=== PATIENT | female | born 1940 | race Caucasian/White ===

== ENCOUNTER → 2016-05-27 | Outpatient (CLI) | payer MEDICARE ==
[~2016-05-27] MED LIST: CIPR500T89 PO; LEVO75TA4 PO; LISI10TA4 PO; MECL-68 PO; METO25TAB PO; NORV5TAB PO; VITA-112 PO
--- NOTE | 2016-05-27 14:49 | REPMRS ---
Patient History The patient states she has not had a clinical breast exam in over a year. No known family history of cancer. Digital Woman Screen Mammo: May 27, 2016 - Exam #: [id number] Bilateral CC and MLO view(s) were taken. Technologist: Marily Mckenzie, Technologist Prior study comparison: May 13, 2009, bilateral screening mammogram, performed at [facility]. FINDINGS: There are scattered fibroglandular densities. There has been no change in the appearance of the mammogram from the prior studies. There is a mild amount of scattered fibroglandular density which is fairly symmetric. There is no interval development of dominant mass, architectural distortion, or clustered microcalcification suggestive of malignancy. ASSESSMENT: BI-RADS/ACR category 1 mammogram. Negative. Recommendation Routine screening mammogram in 1 year (for women over age 40). This mammogram was interpreted with the aid of an FDA-approved computer-aided dectection system. Electronically Signed By: Autsyn Hartley MD 05/27/16 0593
--- NOTE | 2016-05-31 09:24 | DEXA ---
AP SPINE L1 - L4 1.520 2.6 4.0 LT FEMUR TOTAL 1.127 0.9 2.4 RT FEMUR TOTAL 1.072 0.5 1.9 TOTAL BODY TOTAL OTHER DUAL FEMUR FRAX* ASSESSMENT Risk factors: None. 10 year probability of fracture Major osteoporotic fracture 8.3 % Hip fracture 0.9 % COMMENTS: Normal bone densitometry of the spine and hips. The density of the spine has increased 7.3% since 04/19/2005. The density of the left hip has decreased 9.2% since 04/19/2005. The increased density of the spine does represent a significant change. The decreased density of the left hip does represent a significant change. FOLLOW-UP: Recommendation for the next bone density exam: 5 years. WILBER
== END ==
LOC: M WHC 13:23
PROVIDERS: ATTEND Nurse Practitioner Adult Health
DX: Z13.820 Encounter for screening for osteoporosis (principal); Z12.31 Encounter for screening mammogram for malignant neoplasm of breast; M85.88 Other specified disorders of bone density and structure, other site
CPT/HCPCS: 77080; G0202

== ENCOUNTER 2016-07-26 08:43 | Emergency (ER) | payer MEDICARE ==
[~2016-07-26] VITALS: Ht 154.9 cm; Wt 76.2 kg
[2016-07-26] MEDS ORDERED: PRAV10TA PO (09:27)
[2016-07-26] MEDS ORDERED: VALS1TAB47 PO (09:27)
--- NOTE | 2016-07-26 11:18 | REP ---
RIGHT KNEE SERIES: Five views of the right knee performed. There is no acute fracture or dislocation. There is mild medial joint space narrowing and spurring. I do not see significant joint effusion. IMPRESSION: Mild degenerative changes. No fracture or dislocation. Signed by Sabino Dent MD 07/26/2016 04:22 P
[2016-07-26 11:25] VITALS: BP 137/77
[2016-07-26] MEDS ORDERED: ROBA500T PO (11:25)
[2016-07-26] MEDS ORDERED: ULTR50TA PO (11:25)
== END 2016-07-26 11:33 | disposition home or self-care (01) ==
LOC: M ED 10:13
DX: M25.561 Pain in right knee (principal); I25.10 Atherosclerotic heart disease of native coronary artery without angina pectoris; I10 Essential (primary) hypertension; Z88.5 Allergy status to narcotic agent; Z79.899 Other long term (current) drug therapy; R42 Dizziness and giddiness; Z86.73 Personal history of transient ischemic attack (TIA), and cerebral infarction without residual deficits; E78.00 Pure hypercholesterolemia, unspecified; E03.9 Hypothyroidism, unspecified

== ENCOUNTER 2019-10-21 08:14 | Emergency (ER) | payer MEDICARE ==
[~2019-10-21] VITALS: Ht 152.4 cm; Wt 80.1 kg
[~2019-10-21 08:14] MED LIST changes: +ALLE10TA12 PO; +ASPI81TA85 PO; +CIPR-249 PO; -CIPR500T89 PO; -MECL-68 PO; +MECL1TAB31 PO; +MEDR4PAK PO; +METO1TAB32 PO; +METO1TAB63 PO; -METO25TAB PO; +PRAV10TA4 PO; +ROBA500T PO; +ULTR50TA8 PO; +VALS1TAB67 PO
[2019-10-21] MEDS ORDERED: LEVO50TA5 (08:24)
[2019-10-21] MEDS ORDERED: PRAV20TA2 (08:24)
[2019-10-21] MEDS ORDERED: OLME40TA (08:24)
[2019-10-21] MEDS ORDERED: ACETAMINOPHEN 500 MG TAB PO ONE (08:45)
[2019-10-21 09:23] LABS: BASO # 0.1 10^3/uL (0.0-0.2); EOS # 0.4 10^3/uL (0.0-0.5); EOS % 4.3 % (0.0-3.0); HEMATOCRIT 43.3 % (36.0-47.0); HEMOGLOBIN 14.2 g/dl (12.0-15.5); LYMPH # 3.4 10^3/uL (1.5-5.0); LYMPH % 41.7 % (24.0-44.0); MEAN CORPUSCULAR HEMOGLOBIN 29.4 pg (27.0-33.0); MEAN CORPUSCULAR HGB CONC 32.8 g/dl (32.0-36.5); MEAN CORPUSCULAR VOLUME 89.6 fl (80.0-96.0); MONO # 0.7 10^3/uL (0.0-0.8); MONO % 8.4 % (0.0-5.0); NEUTROPHILS # 3.7 10^3/uL (1.5-8.5); NEUTROPHILS % 44.2 % (36.0-66.0); PLATELET COUNT, AUTOMATED 240 10^3/uL (150-450); RED BLOOD COUNT 4.83 10^6/uL (4.00-5.40); WHITE BLOOD COUNT 8.2 10^3/uL (4.0-10.0)
[2019-10-21] MEDS ORDERED: ISOVUE-370 76% 100ML VIAL As Ordered ONE (09:42)
[2019-10-21 09:55] LABS: APPEARANCE, URINE CLEAR (CLEAR); BACTERIA, URINE AUTO NEGATIVE (NEGATIVE); BILIRUBIN, URINE AUTO NEGATIVE (NEGATIVE); BLOOD, URINE BLOOD 1+ (NEGATIVE); COLOR, URINE STRAW (YELLOW); GLUCOSE, URINE (UA) AUTO NEGATIVE (NEGATIVE); KETONE, URINE AUTO NEGATIVE (NEGATIVE); LEUKOCYTE ESTERASE, URINE AUTO 1+ (NEGATIVE); MUCUS, URINE SMALL (NEGATIVE); NITRITE, URINE AUTO NEGATIVE (NEGATIVE); PROTEIN, URINE AUTO NEGATIVE (NEGATIVE); RBC, URINE AUTO 2 /HPF (0-3); SPECIFIC GRAVITY URINE AUTO 1.009 (1.002-1.035); SQUAMOUS EPITHELIAL CELL UR AU 0 /HPF (0-6); UROBILINOGEN, URINE AUTO 0.2 mg/dL (0.0-2.0); WBC, URINE AUTO 3 /HPF (0-3)
--- NOTE | 2019-10-21 10:31 | REP ---
CT CERVICAL SPINE: INDICATION: Cervical spine trauma. COMPARISON: None. FINDINGS: There is no acute fracture, subluxation or dislocation. No hemorrhage or additional acute posttraumatic sequelae are present within the spinal canal. Multilevel spondylosis is present most pronounced at C5-6 and C6-7 without severe spinal canal narrowing detected. IMPRESSION: No acute posttraumatic sequelae of the cervical spine. Unreviewed
--- NOTE | 2019-10-21 10:40 | REP ---
CT BRAIN: INDICATION: Head trauma. COMPARISON: 11/21/2014 FINDINGS: There is no acute intracranial hemorrhage, acute cortical infarction, mass effect, hydrocephalus or acute calvarial fracture. Age-related volume loss and mild sequelae of chronic small vessel disease are present. IMPRESSION: No acute intracranial process. Unreviewed
[2019-10-21] MEDS ORDERED: LIDOCAINE 5% (LIDODERM) PATCH TD ONE (11:15)
[2019-10-21 11:26] VITALS: BP 160/80
[2019-10-21] MEDS ORDERED: LIDO5DIS41 TOP (11:38)
--- NOTE | 2019-10-21 11:40 | REP ---
REASON: Pain after trauma. PRIORS: None. CONTRAST: 100 mL Isovue 370. There is no mediastinal or hilar adenopathy. There are no pleural or pericardial effusions. The imaged osseous structures are within normal limits. Evaluation of the lung acosta shows a 5 mm sized nodule in the posterior segment of the right upper lobe. IMPRESSION: 5 mm sized right upper lobe nodule. According to the revised Fleischner Society criteria, this represents a category 3 lesion for which a 6-month followup examination is recommended. Electronically Signed by Oli Castillo DO 10/21/2019 01:23 P
--- NOTE | 2019-10-21 11:43 | REP ---
REASON: Trauma. PRIORS: None. CONTRAST: 100 mL Isovue 370. The liver, gallbladder, spleen, pancreas, adrenal glands, and kidneys are within normal limits. The abdominal aorta and para-aortic regions are within normal limits. The intra-abdominal and intrapelvic bowel loops and their mesenteries are within normal limits. No free fluid or free air is seen in the abdomen or pelvis. Bone window technique throughout the examination shows chronic changes involving the hips, spine, sacroiliac joints. IMPRESSION: No evidence of acute disease. Electronically Signed by Oli Castillo DO 10/21/2019 01:23 P
[2019-10-21] MEDS ORDERED: **NOTE PATIENT COMMENT** MISC XX ONE (23:30)
--- NOTE | 2019-10-22 13:15 | ED PDOC ---
Post-Departure Follow-Up dr ramires faxed formal report of ct chest for fu Magdalene Benz MD Oct 22, 2019 13:15
== END 2019-10-21 11:41 | disposition home or self-care (01) ==
LOC: M ED 08:14
DX: S09.90XA Unspecified injury of head, initial encounter (principal); S20.229A Contusion of unspecified back wall of thorax, initial encounter; S20.219A Contusion of unspecified front wall of thorax, initial encounter; R91.1 Solitary pulmonary nodule; W11.XXXA Fall on and from ladder, initial encounter; Y92.9 Unspecified place or not applicable; Y93.9 Activity, unspecified; Y99.9 Unspecified external cause status; J30.1 Allergic rhinitis due to pollen; I10 Essential (primary) hypertension; E78.5 Hyperlipidemia, unspecified; R73.03 Prediabetes; E03.9 Hypothyroidism, unspecified; Z86.73 Personal history of transient ischemic attack (TIA), and cerebral infarction without residual deficits; Z79.82 Long term (current) use of aspirin; Z79.899 Other long term (current) drug therapy; Z88.5 Allergy status to narcotic agent
CPT/HCPCS: 70450; 71260; 72125; 74177; 80047; 81001; 85025; 99284; Q9967

== ENCOUNTER → 2020-05-27 | Outpatient (REF) | payer BC, MEDICARE ==
[~2020-05-27] MED LIST changes: -ASPI81TA85 PO; +ASPI81TA86 PO; +LEVO50TA5; +LIDO5DIS41 TOP; +LISI10TA22 PO; -LISI10TA4 PO; +OLME40TA; +PRAV20TA2
[2020-05-27 10:30] LABS: CHOLESTEROL RISK RATIO 3.619 (<5)
[2020-05-27 10:49] LABS: HEMOGLOBIN A1c 6.8 %
== END ==
LOC: M SFHCPLAZ 08:14
PROVIDERS: ATTEND Physician Assistant
DX: E11.9 Type 2 diabetes mellitus without complications (principal); E78.2 Mixed hyperlipidemia

== ENCOUNTER → 2020-11-02 | Outpatient (CLI) | payer MEDICARE ==
--- NOTE | 2020-11-02 11:35 | REP ---
INDICATION: SOLITARY PULMONARY NODULE. COMPARISON: Comparison chest CT study October 21, 2019.. TECHNIQUE: Helical scanning is acquired. 3 mm axial images are generated. Coronal and sagittal MPR and coronal MIP images are generated. FINDINGS: Preliminary digital car chaser radiograph is unremarkable. There is no evidence of pleural or pericardial effusion. No hilar or mediastinal mass or adenopathy is observed. There is some vascular calcification including the left coronary artery distribution. Normal adrenal glands are observed. The visualized upper abdominal structures are unremarkable. No bony destructive lesion is seen. There are multiple tiny subcentimeter pulmonary nodules bilaterally all of which are unchanged from the prior study done 1 year ago on October 21, 2019. The largest of these is a 5 mm nodule in the right upper lobe seen on today's study page 31/ in series 35131. No infiltrate or mass lesion is seen. No endobronchial lesion is seen. IMPRESSION: Lung RADS category 2 findings. If the patient is considered at high risk for pulmonary malignancy, repeat screening exam would be indicated in 1 year. <Electronically signed by Austyn Hartley > 11/02/20 [id number]
== END ==
LOC: M PLAIMG 09:32
PROVIDERS: ATTEND Internal Medicine Pulmonary Disease
DX: R91.8 Other nonspecific abnormal finding of lung field (principal)

== ENCOUNTER → 2020-11-12 | Outpatient (CLI) | payer MEDICARE ==
[2020-11-12 12:06] LABS: HEMOGLOBIN A1c 6.5 %
[2020-11-12 12:20] LABS: ALBUMIN 3.6 GM/DL (3.2-5.2); ALT/SGPT 30 U/L (12-78); BILIRUBIN,TOTAL 0.6 MG/DL (0.2-1.0); BLOOD UREA NITROGEN 16 MG/DL (7-18); CALCIUM LEVEL 8.6 MG/DL (8.8-10.2); CARBON DIOXIDE LEVEL 29 MEQ/L (21-32); CHLORIDE LEVEL 106 MEQ/L (98-107); CREATININE FOR GFR 0.87 MG/DL (0.55-1.30); FREE T4 1.06 NG/DL (0.76-1.46); GLOMERULAR FILTRATION RATE > 60.0 (>39); GLUCOSE, FASTING 110 MG/DL (70-100); POTASSIUM SERUM 4.6 MEQ/L (3.5-5.1); SODIUM LEVEL 139 MEQ/L (136-145); TOTAL PROTEIN 7.3 GM/DL (6.4-8.2)
== END ==
LOC: M PLALAB 09:04
PROVIDERS: ATTEND Physician Assistant
DX: E03.9 Hypothyroidism, unspecified (principal); E11.9 Type 2 diabetes mellitus without complications

== ENCOUNTER → 2020-12-14 | Outpatient (CLI) | payer MEDICARE ==
--- NOTE | 2020-12-14 11:32 | REPMRS ---
Patient History The patient states she has not had a clinical breast exam in over a year. No known family history of cancer.The patient states she has not had a clinical breast exam in over a year. Patient states no breast complaints today. Patient has signed MRS History Sheet. Digital Woman Screen Mammo: December 14, 2020 - Exam #: [id number] Bilateral CC and MLO view(s) were taken. Technologist: Tessa Hodgson, Technologist Prior study comparison: June 21, 2019, bilateral digital mammo screening bilat, performed at [facility]. May 27, 2016, digital woman screen mammo performed at [facility]. May 13, 2009, bilateral screening mammogram, performed at [facility]. FINDINGS: There are scattered fibroglandular densities. The Volpara volumetric breast density category is: B. There is a moderate amount of residual fibroglandular tissue which is fairly symmetric. There is no interval development of dominant mass, architectural distortion, or grouped microcalcification typical of malignancy. There has been no change in the appearance of the mammogram from the prior studies. 3-D tomosynthesis shows no additional findings. Assessment: BI-RADS/ACR category 1 mammogram. Negative Mammogram. Recommendation Routine screening mammogram of both breasts in 1 year (for women over age 40). This patient's [facility] Lifetime Breast Cancer RIsk is estimated at 2.0 %. This mammogram was interpreted with the aid of an FDA-approved computer-aided dectection system. Electronically Signed By: Austyn Hartley MD 12/14/20 [id number]
== END ==
LOC: M WHC 10:23
PROVIDERS: ATTEND Physician Assistant
DX: Z12.31 Encounter for screening mammogram for malignant neoplasm of breast (principal)

== ENCOUNTER → 2022-05-23 | Outpatient (CLI) | payer MEDICARE | LOC: M PLAIMG 13:23 | PROVIDERS: ATTEND Internal Medicine Critical Care Medicine | DX: R91.8 Other nonspecific abnormal finding of lung field (principal); I25.10 Atherosclerotic heart disease of native coronary artery without angina pectoris; I70.0 Atherosclerosis of aorta ==

== ENCOUNTER → 2022-09-16 | Outpatient (CLI) | payer MEDICARE ==
[~2022-09-16] MED LIST changes: +DRIS50003 PO; +LORA-243 PO; -OLME40TA; +OLME40TA PO; -PRAV20TA2; +PRAV20TA2 PO
[2022-09-16 12:59] LABS: CSF TUBE# CELL CNT TUBE 1
[2022-09-16 13:00] LABS: APPEARANCE, CSF CLEAR (CLEAR); COLOR, CSF COLORLESS (COLORLESS)
[2022-09-16 13:05] LABS: CSF TUBE# TP TUBE 1; TOTAL PROTEIN,CSF 175.6 MG/DL (15-45)
[2022-09-16 13:08] LABS: CSF TUBE# GLU TUBE 1
[2022-09-16 13:30] VITALS: BP 163/73
== END ==
LOC: M IRPRO 09:47
PROVIDERS: ATTEND Psychiatry & Neurology Neurology
DX: R51.9 Headache, unspecified (principal); G03.9 Meningitis, unspecified
CPT/HCPCS: 36415; 62328; 76000; 82784; 82945; 83916; 84157; 87070; 87102; 87205; 87252; 87483; 88108; 88313; 89051; C1729; C1769; C1894

== ENCOUNTER → 2022-10-10 | Outpatient (CLI) | payer MEDICARE ==
[2022-10-19 15:35] LABS: VOLTAGE-GATED POTASSIUM CHANNE 0 pmol/L (0-31)
== END ==
LOC: M PLALAB 14:24
PROVIDERS: ATTEND Psychiatry & Neurology Neurology
DX: R51.9 Headache, unspecified (principal); G03.9 Meningitis, unspecified

== ENCOUNTER → 2022-10-10 | Outpatient (CLI) | payer MEDICARE ==
[2022-10-10 20:25] LABS: HEPATITIS B SURFACE ANTIGEN NEGATIVE (NEGATIVE)
[2022-10-10 20:38] LABS: HIV 1&2 SCREEN NEGATIVE (NEGATIVE)
[2022-10-10 20:47] LABS: HEPATITIS C VIRUS ABY INDEX 0.08 INDEX (<0.8)
== END ==
LOC: M PLALAB 14:20
PROVIDERS: ATTEND Internal Medicine Infectious Disease
DX: G03.0 Nonpyogenic meningitis (principal); Z11.59 Encounter for screening for other viral diseases

== ENCOUNTER → 2022-10-21 | Outpatient (REF) | payer MEDICARE ==
[2022-10-21 17:28] LABS: APPEARANCE, URINE HAZY (CLEAR); BACTERIA, URINE AUTO NEGATIVE (NEGATIVE); BILIRUBIN, URINE AUTO NEGATIVE (NEGATIVE); BLOOD, URINE BLOOD NEGATIVE (NEGATIVE); COLOR, URINE YELLOW (YELLOW); GLUCOSE, URINE (UA) AUTO NEGATIVE (NEGATIVE); KETONE, URINE AUTO NEGATIVE (NEGATIVE); LEUKOCYTE ESTERASE, URINE AUTO 3+ (NEGATIVE); MUCUS, URINE SMALL (NEGATIVE); NITRITE, URINE AUTO NEGATIVE (NEGATIVE); PROTEIN, URINE AUTO NEGATIVE (NEGATIVE); RBC, URINE AUTO 5 /HPF (0-3); SPECIFIC GRAVITY URINE AUTO 1.019 (1.002-1.035); SQUAMOUS EPITHELIAL CELL UR AU 5 /HPF (0-6); UROBILINOGEN, URINE AUTO 0.2 mg/dL (0.0-2.0); WBC, URINE AUTO 15 /HPF (0-3)
[2022-10-21 17:34] LABS: BASO # 0.1 10^3/uL (0.0-0.2); BASO % 0.9 % (0.0-1.0); EOS # 0.3 10^3/uL (0.0-0.5); EOS % 3.3 % (0.0-3.0); HEMOGLOBIN 11.6 g/dl (12.0-15.5); LYMPH # 3.4 10^3/uL (1.5-5.0); LYMPH % 32.5 % (24.0-44.0); MEAN CORPUSCULAR HEMOGLOBIN 28.4 pg (27.0-33.0); MEAN CORPUSCULAR HGB CONC 31.4 g/dl (32.0-36.5); MEAN CORPUSCULAR VOLUME 90.5 fl (80.0-96.0); MONO # 0.9 10^3/uL (0.0-0.8); MONO % 8.7 % (2.0-8.0); NEUTROPHILS # 5.7 10^3/uL (1.5-8.5); NEUTROPHILS % 54.1 % (36.0-66.0); PLATELET COUNT, AUTOMATED 405 10^3/uL (150-450); RED BLOOD COUNT 4.09 10^6/uL (4.00-5.40); WHITE BLOOD COUNT 10.5 10^3/uL (4.0-10.0)
[2022-10-21 17:48] LABS: TOTAL PROTEIN,RANDOM URINE 19.5 MG/DL (0.0-14.0)
[2022-10-21 17:53] LABS: CREATININE,RANDOM URINE 179.5 MG/DL
[2022-10-21 17:58] LABS: C REACTIVE PROTEIN QUANTITATIV 1.9 MG/DL (<1.0); COMPLEMENT C3 143.5 MG/DL (90.0-170.0)
[2022-10-21 17:59] LABS: COMPLEMENT C4 40.4 MG/DL (12-36)
[2022-10-21 18:01] LABS: ERYTHROCYTE SEDIMENTATION RATE 77 mm/hr (0-30)
== END ==
LOC: M SFHCRHEU 14:07
PROVIDERS: ATTEND Internal Medicine
DX: M25.48 Effusion, other site (principal); G03.0 Nonpyogenic meningitis

== ENCOUNTER → 2022-12-22 | Outpatient (CLI) | payer MEDICARE ==
[~2022-12-22] MED LIST changes: +MECL-209 PO; -MECL1TAB31 PO
== END ==
LOC: M PLAIMG 10:08
PROVIDERS: ATTEND Internal Medicine
DX: M25.50 Pain in unspecified joint (principal); M25.48 Effusion, other site

== ENCOUNTER → 2022-12-28 | Outpatient (REF) | payer MEDICARE | LOC: M LAB REF 17:39 | PROVIDERS: ATTEND Surgery | DX: I77.6 Arteritis, unspecified (principal) ==

== ENCOUNTER → 2023-04-03 | Outpatient (CLI) | payer MEDICARE | LOC: M LAB 13:15 | PROVIDERS: ATTEND Psychiatry & Neurology Neurology | DX: R51.9 Headache, unspecified (principal) ==

== ENCOUNTER → 2023-06-21 | Outpatient (CLI) | payer MEDICARE ==
[2023-06-21 11:11] LABS: BASO # 0.1 10^3/uL (0.0-0.2); BASO % 0.4 % (0.0-1.0); EOS # 0.1 10^3/uL (0.0-0.5); EOS % 0.7 % (0.0-3.0); HEMOGLOBIN 13.9 g/dl (12.0-15.5); LYMPH # 2.8 10^3/uL (1.5-5.0); LYMPH % 21.5 % (24.0-44.0); MEAN CORPUSCULAR HEMOGLOBIN 29.6 pg (27.0-33.0); MEAN CORPUSCULAR HGB CONC 32.3 g/dl (32.0-36.5); MEAN CORPUSCULAR VOLUME 91.5 fl (80.0-96.0); MONO % 7.6 % (2.0-8.0); NEUTROPHILS # 9.2 10^3/uL (1.5-8.5); NEUTROPHILS % 69.5 % (36.0-66.0); PLATELET COUNT, AUTOMATED 252 10^3/uL (150-450); WHITE BLOOD COUNT 13.2 10^3/uL (4.0-10.0)
[2023-06-21 11:19] LABS: ERYTHROCYTE SEDIMENTATION RATE 12 mm/hr (0-30)
[2023-06-21 11:34] LABS: C REACTIVE PROTEIN QUANTITATIV < 0.40 MG/DL (<1.0)
[2023-06-21 11:35] LABS: ALBUMIN 3.5 G/DL (3.2-5.2); ALKALINE PHOSPHATASE 62 U/L (46-116); ALT/SGPT 18 U/L (7.0-40); AST/SGOT 13 U/L (<34); BILIRUBIN,TOTAL 0.5 MG/DL (0.3-1.2); BLOOD UREA NITROGEN 25 MG/DL (9-23); CALCIUM LEVEL 8.7 MG/DL (8.3-10.6); CARBON DIOXIDE LEVEL 30 MMOL/L (20-31); CHLORIDE LEVEL 104 MMOL/L (98-107); CREATININE FOR GFR 0.95 MG/DL (0.55-1.30); GLOMERULAR FILTRATION RATE > 60.0 (>32); GLUCOSE, FASTING 131 MG/DL (74-106); POTASSIUM SERUM 4.2 MMOL/L (3.5-5.1); SODIUM LEVEL 139 MMOL/L (136-145); TOTAL PROTEIN 6.3 G/DL (5.7-8.2)
== END ==
LOC: M LAB 10:32
PROVIDERS: ATTEND Internal Medicine Rheumatology
DX: M31.6 Other giant cell arteritis (principal); M54.2 Cervicalgia; M25.50 Pain in unspecified joint; Z79.899 Other long term (current) drug therapy

== ENCOUNTER → 2023-07-31 | Outpatient (CLI) | payer MEDICARE ==
[2023-07-31 10:05] LABS: BASO # 0.1 10^3/uL (0.0-0.2); BASO % 0.6 % (0.0-1.0); EOS # 0.1 10^3/uL (0.0-0.5); HEMATOCRIT 42.6 % (36.0-47.0); HEMOGLOBIN 13.8 g/dl (12.0-15.5); LYMPH # 3.2 10^3/uL (1.5-5.0); LYMPH % 26.6 % (24.0-44.0); MEAN CORPUSCULAR HGB CONC 32.4 g/dl (32.0-36.5); MEAN CORPUSCULAR VOLUME 92.6 fl (80.0-96.0); MONO # 1.2 10^3/uL (0.0-0.8); MONO % 9.5 % (2.0-8.0); NEUTROPHILS # 7.5 10^3/uL (1.5-8.5); PLATELET COUNT, AUTOMATED 243 10^3/uL (150-450); WHITE BLOOD COUNT 12.2 10^3/uL (4.0-10.0)
[2023-07-31 10:33] LABS: ALBUMIN 3.1 G/DL (3.2-5.2); ALKALINE PHOSPHATASE 66 U/L (46-116); ALT/SGPT 17 U/L (7.0-40); AST/SGOT 14 U/L (<34); BILIRUBIN,TOTAL 0.6 MG/DL (0.3-1.2); BLOOD UREA NITROGEN 20 MG/DL (9-23); CALCIUM LEVEL 8.9 MG/DL (8.3-10.6); CARBON DIOXIDE LEVEL 32 MMOL/L (20-31); CHLORIDE LEVEL 102 MMOL/L (98-107); CREATININE FOR GFR 0.92 MG/DL (0.55-1.30); GLOMERULAR FILTRATION RATE > 60.0 (>32); GLUCOSE, FASTING 158 MG/DL (74-106); SODIUM LEVEL 139 MMOL/L (136-145); TOTAL PROTEIN 6.1 G/DL (5.7-8.2)
[2023-07-31 10:36] LABS: ERYTHROCYTE SEDIMENTATION RATE 26 mm/hr (0-30)
== END ==
LOC: M LAB 09:20
PROVIDERS: ATTEND Internal Medicine Rheumatology
DX: M31.6 Other giant cell arteritis (principal); M25.50 Pain in unspecified joint

== ENCOUNTER → 2023-09-15 | Outpatient (CLI) | payer MEDICARE ==
[2023-09-15 13:02] LABS: BASO # 0.1 10^3/uL (0.0-0.2); BASO % 0.5 % (0.0-1.0); EOS % 0.2 % (0.0-3.0); HEMATOCRIT 41.6 % (36.0-47.0); HEMOGLOBIN 13.4 g/dl (12.0-15.5); LYMPH % 14.7 % (24.0-44.0); MEAN CORPUSCULAR HGB CONC 32.2 g/dl (32.0-36.5); MEAN CORPUSCULAR VOLUME 93.1 fl (80.0-96.0); MONO # 0.7 10^3/uL (0.0-0.8); MONO % 5.3 % (2.0-8.0); NEUTROPHILS # 10.5 10^3/uL (1.5-8.5); NEUTROPHILS % 78.9 % (36.0-66.0); PLATELET COUNT, AUTOMATED 252 10^3/uL (150-450); RED BLOOD COUNT 4.47 10^6/uL (4.00-5.40); WHITE BLOOD COUNT 13.3 10^3/uL (4.0-10.0)
[2023-09-15 13:19] LABS: C REACTIVE PROTEIN QUANTITATIV 0.5 MG/DL (<1.0)
[2023-09-15 13:21] LABS: ALBUMIN 3.4 G/DL (3.2-5.2); BILIRUBIN,TOTAL 0.6 MG/DL (0.3-1.2); CALCIUM LEVEL 9.2 MG/DL (8.3-10.6); CREATININE FOR GFR 1.05 MG/DL (0.55-1.30); GLOMERULAR FILTRATION RATE 53.5 (>32); POTASSIUM SERUM 4.8 MMOL/L (3.5-5.1); TOTAL PROTEIN 6.3 G/DL (5.7-8.2)
[2023-09-15 13:25] LABS: ERYTHROCYTE SEDIMENTATION RATE 19 mm/hr (0-30)
== END ==
LOC: M LAB 12:14
PROVIDERS: ATTEND Nurse Practitioner Family
DX: M31.6 Other giant cell arteritis (principal)

== ENCOUNTER → 2023-11-21 | Outpatient (CLI) | payer MEDICARE ==
[2023-11-21 07:43] LABS: ALBUMIN 3.6 G/DL (3.2-5.2); BILIRUBIN,TOTAL 0.5 MG/DL (0.3-1.2); CHOLESTEROL RISK RATIO 4.1 (<5); CREATININE FOR GFR 1.21 MG/DL (0.55-1.30); GLOMERULAR FILTRATION RATE 45.5 (>32); HDL CHOLESTEROL 44.1 MG/DL (>40); LDL CHOLESTEROL 106.5 MG/DL (<100); NON-HDL-C 136.9 MG/DL; TOTAL PROTEIN 6.5 G/DL (5.7-8.2)
[2023-11-21 07:47] LABS: FREE T4 1.11 NG/DL (0.89-1.76); THYROID STIMULATING HORMONE 1.819 uIU/ML (0.55-4.78); TOTAL 25(OH) VITAMIN D 95.5 NG/ML (20.0-100.0)
[2023-11-21 08:08] LABS: HEMOGLOBIN A1c 6.7 % (4.0-6.0)
== END ==
LOC: M LAB 06:23
PROVIDERS: ATTEND Family Medicine
DX: M54.50 Low back pain, unspecified (principal); M46.1 Sacroiliitis, not elsewhere classified; E03.9 Hypothyroidism, unspecified; I10 Essential (primary) hypertension; E55.9 Vitamin D deficiency, unspecified; E78.5 Hyperlipidemia, unspecified; E11.8 Type 2 diabetes mellitus with unspecified complications

== ENCOUNTER → 2024-01-11 | Outpatient (CLI) | payer MEDICARE ==
[2024-01-11 07:04] LABS: BASO # 0.1 10^3/uL (0.0-0.2); BASO % 0.5 % (0.0-1.0); EOS # 0.2 10^3/uL (0.0-0.5); EOS % 1.3 % (0.0-3.0); HEMATOCRIT 40.6 % (36.0-47.0); LYMPH % 36.5 % (24.0-44.0); MEAN CORPUSCULAR HEMOGLOBIN 29.7 pg (27.0-33.0); MEAN CORPUSCULAR VOLUME 92.7 fl (80.0-96.0); MONO # 1.3 10^3/uL (0.0-0.8); MONO % 9.7 % (2.0-8.0); NEUTROPHILS % 51.6 % (36.0-66.0); PLATELET COUNT, AUTOMATED 243 10^3/uL (150-450); RED BLOOD COUNT 4.38 10^6/uL (4.00-5.40); WHITE BLOOD COUNT 13.6 10^3/uL (4.0-10.0)
[2024-01-11 07:10] LABS: ERYTHROCYTE SEDIMENTATION RATE 18 mm/hr (0-30)
[2024-01-11 07:14] LABS: C REACTIVE PROTEIN QUANTITATIV 0.6 MG/DL (<1.0)
[2024-01-11 07:15] LABS: ALBUMIN 3.2 G/DL (3.2-5.2); BILIRUBIN,TOTAL 0.6 MG/DL (0.3-1.2); CALCIUM LEVEL 8.9 MG/DL (8.3-10.6); CREATININE FOR GFR 1.18 MG/DL (0.55-1.30); GLOMERULAR FILTRATION RATE 46.8 (>32); POTASSIUM SERUM 4.2 MMOL/L (3.5-5.1); TOTAL PROTEIN 6.2 G/DL (5.7-8.2)
== END ==
LOC: M LAB 06:03
PROVIDERS: ATTEND Nurse Practitioner Family
DX: M31.6 Other giant cell arteritis (principal)

== ENCOUNTER → 2024-01-17 | Outpatient (CLI) | payer MEDICARE | LOC: M PLAIMG 14:02 | PROVIDERS: ATTEND Physician Assistant Surgical | DX: M46.1 Sacroiliitis, not elsewhere classified (principal) ==

== ENCOUNTER → 2024-02-12 | Outpatient (CLI) | payer MEDICARE ==
[2024-02-12 07:21] LABS: PLATELET COUNT, AUTOMATED 290 10^3/uL (150-450)
[2024-02-12 07:37] LABS: INR 0.99; PARTIAL THROMBOPLASTIN TIME 24.4 SECONDS (24.8-34.2); PROTHROMBIN TIME 13.4 SECONDS (12.5-14.5)
== END ==
LOC: M LAB 06:53
PROVIDERS: ATTEND Physician Assistant Surgical
DX: Z01.818 Encounter for other preprocedural examination (principal)

== ENCOUNTER → 2024-06-12 | Outpatient (CLI) | payer MEDICARE ==
[2024-06-12 07:20] LABS: BASO # 0.1 10^3/uL (0.0-0.2); BASO % 0.6 % (0.0-1.0); EOS # 0.2 10^3/uL (0.0-0.5); EOS % 1.7 % (0.0-3.0); HEMATOCRIT 41.4 % (36.0-47.0); HEMOGLOBIN 13.5 g/dl (12.0-15.5); LYMPH % 35.8 % (24.0-44.0); MEAN CORPUSCULAR HEMOGLOBIN 30.8 pg (27.0-33.0); MEAN CORPUSCULAR HGB CONC 32.6 g/dl (32.0-36.5); MEAN CORPUSCULAR VOLUME 94.3 fl (80.0-96.0); MONO # 1.1 10^3/uL (0.0-0.8); MONO % 9.5 % (2.0-8.0); NEUTROPHILS # 5.9 10^3/uL (1.5-8.5); PLATELET COUNT, AUTOMATED 248 10^3/uL (150-450); RED BLOOD COUNT 4.39 10^6/uL (4.00-5.40); WHITE BLOOD COUNT 11.3 10^3/uL (4.0-10.0)
[2024-06-12 07:27] LABS: ERYTHROCYTE SEDIMENTATION RATE 25 mm/hr (0-30)
[2024-06-12 07:50] LABS: ALBUMIN 3.2 G/DL (3.2-5.2); ALKALINE PHOSPHATASE 56 U/L (35-104); ALT/SGPT 22 U/L (7.0-40); AST/SGOT 12 U/L (<34); BILIRUBIN,TOTAL 0.6 MG/DL (0.3-1.2); BLOOD UREA NITROGEN 22 MG/DL (9-23); CALCIUM LEVEL 8.9 MG/DL (8.3-10.6); CARBON DIOXIDE LEVEL 29 MMOL/L (20-31); CHLORIDE LEVEL 104 MMOL/L (98-107); CREATININE FOR GFR 0.83 MG/DL (0.55-1.30); GLOMERULAR FILTRATION RATE > 60.0 (>32); GLUCOSE, FASTING 106 MG/DL (74-106); POTASSIUM SERUM 4.3 MMOL/L (3.5-5.1); SODIUM LEVEL 143 MMOL/L (136-145); TOTAL PROTEIN 6.4 G/DL (5.7-8.2)
== END ==
LOC: M LAB 06:48
PROVIDERS: ATTEND Nurse Practitioner Family
DX: M31.6 Other giant cell arteritis (principal); Z79.899 Other long term (current) drug therapy

== ENCOUNTER → 2024-07-24 | Outpatient (CLI) | payer MEDICARE | LOC: M LAB 08:05 | PROVIDERS: ATTEND Nurse Practitioner Family | DX: M31.6 Other giant cell arteritis (principal) ==

== ENCOUNTER → 2024-12-15 | Outpatient (CLI) | payer MEDICARE ==
[~2024-12-15] MED LIST changes: +LIDO1ADH93 TOP; -LIDO5DIS41 TOP; +PRAV10TA PO; -PRAV10TA4 PO; -PRAV20TA2 PO; +PRAV20TA78 PO
[2024-12-15 10:02] LABS: BASO # 0.1 10^3/uL (0.0-0.2); BASO % 0.5 % (0.0-1.0); EOS # 0.2 10^3/uL (0.0-0.5); EOS % 1.8 % (0.0-3.0); LYMPH # 4.0 10^3/uL (1.5-5.0); LYMPH % 33.6 % (24.0-44.0); MONO # 1.2 10^3/uL (0.0-0.8); MONO % 10.3 % (2.0-8.0); NEUTROPHILS # 6.3 10^3/uL (1.5-8.5); NEUTROPHILS % 53.4 % (36.0-66.0); PLATELET COUNT, AUTOMATED 273 10^3/uL (150-450)
[2024-12-15 10:11] LABS: ERYTHROCYTE SEDIMENTATION RATE 18 mm/hr (0-30)
[2024-12-15 10:32] LABS: C REACTIVE PROTEIN QUANTITATIV 0.7 MG/DL (<1.0)
[2024-12-15 10:33] LABS: ALT/SGPT 20.0 U/L (7.0-40); AST/SGOT 18.0 U/L (<34); CALCIUM LEVEL 9.1 MG/DL (8.3-10.6); CARBON DIOXIDE LEVEL 30.0 MMOL/L (20-31); CHLORIDE LEVEL 104.0 MMOL/L (98-107); CREATININE FOR GFR 0.91 MG/DL (0.55-1.30); GLOMERULAR FILTRATION RATE 63.0 (>32); POTASSIUM SERUM 4.0 MMOL/L (3.5-5.1); SODIUM LEVEL 144.0 MMOL/L (136-145)
== END ==
LOC: M LAB 08:55
PROVIDERS: ATTEND Nurse Practitioner Family
DX: Z79.899 Other long term (current) drug therapy (principal); M31.6 Other giant cell arteritis

== ENCOUNTER → 2025-02-28 | Outpatient (CLI) | payer MEDICARE ==
[2025-02-28 11:20] LABS: BASO # 0.1 10^3/uL (0.0-0.2); BASO % 0.6 % (0.0-1.0); EOS # 0.2 10^3/uL (0.0-0.5); EOS % 1.3 % (0.0-3.0); LYMPH # 2.2 10^3/uL (1.5-5.0); LYMPH % 17.9 % (24.0-44.0); MONO # 1.2 10^3/uL (0.0-0.8); MONO % 9.8 % (2.0-8.0); NEUTROPHILS # 8.6 10^3/uL (1.5-8.5); NEUTROPHILS % 70.1 % (36.0-66.0); PLATELET COUNT, AUTOMATED 280 10^3/uL (150-450)
[2025-02-28 11:42] LABS: ALT/SGPT 16.0 U/L (7.0-40); AST/SGOT 19.0 U/L (<34); C REACTIVE PROTEIN QUANTITATIV 0.72 MG/DL (<1.0); CALCIUM LEVEL 9.0 MG/DL (8.3-10.6); CARBON DIOXIDE LEVEL 29.0 MMOL/L (20-31); CHLORIDE LEVEL 104.0 MMOL/L (98-107); CREATININE FOR GFR 0.96 MG/DL (0.55-1.30); GLOMERULAR FILTRATION RATE 58.7 (>32); POTASSIUM SERUM 4.1 MMOL/L (3.5-5.1); SODIUM LEVEL 142.0 MMOL/L (136-145)
== END ==
LOC: M LAB 10:02
PROVIDERS: ATTEND Nurse Practitioner Family
DX: Z79.899 Other long term (current) drug therapy (principal); M31.6 Other giant cell arteritis

== ENCOUNTER → 2025-04-16 | Outpatient (CLI) | payer MEDICARE ==
[2025-04-16 10:37] LABS: BASO # 0.1 10^3/uL (0.0-0.2); BASO % 0.6 % (0.0-1.0); EOS # 0.2 10^3/uL (0.0-0.5); EOS % 1.7 % (0.0-3.0); LYMPH # 3.8 10^3/uL (1.5-5.0); LYMPH % 31.7 % (24.0-44.0); MONO # 1.2 10^3/uL (0.0-0.8); MONO % 10.2 % (2.0-8.0); NEUTROPHILS # 6.7 10^3/uL (1.5-8.5); NEUTROPHILS % 55.4 % (36.0-66.0); PLATELET COUNT, AUTOMATED 252 10^3/uL (150-450)
[2025-04-16 11:15] LABS: ALT/SGPT 15.0 U/L (7.0-40); AST/SGOT 12.0 U/L (<34); CALCIUM LEVEL 9.3 MG/DL (8.3-10.6); CARBON DIOXIDE LEVEL 30.0 MMOL/L (20-31); CHLORIDE LEVEL 105.0 MMOL/L (98-107); CHOLESTEROL LEVEL 142.0 MG/DL (<200); CHOLESTEROL RISK RATIO 2.99 (<5); CREATININE FOR GFR 1.04 MG/DL (0.55-1.30); GLOMERULAR FILTRATION RATE 53.3 (>32); LDL CHOLESTEROL 63.2 MG/DL (<100); NON-HDL-C 94.6 MG/DL; POTASSIUM SERUM 4.3 MMOL/L (3.5-5.1); SODIUM LEVEL 143.0 MMOL/L (136-145); TRIGLYCERIDES LEVEL 157.0 MG/DL (<150)
[2025-04-16 11:17] LABS: FREE T4 1.3 NG/DL (0.89-1.76)
[2025-04-16 11:42] LABS: TOTAL 25(OH) VITAMIN D 114.9 NG/ML (20.0-100.0)
[2025-04-16 11:46] LABS: ESTIMATED AVERAGE GLUCOSE 148.0 MG/DL (60-110)
== END ==
LOC: M LAB 09:32
PROVIDERS: ATTEND Family Medicine
DX: Z00.01 Encounter for general adult medical examination with abnormal findings (principal); I10 Essential (primary) hypertension; E78.5 Hyperlipidemia, unspecified; E03.9 Hypothyroidism, unspecified; E11.9 Type 2 diabetes mellitus without complications; E55.9 Vitamin D deficiency, unspecified